=== PATIENT | male | born 1985 | race Caucasian/White ===

== ENCOUNTER 2018-10-17 11:40 | Emergency (ER) | payer BC ==
[~2018-10-17] VITALS: Ht 182.9 cm; Wt 95.0 kg
[2018-10-17 12:16] VITALS: Ht 182.9 cm; Wt 95.0 kg
[2018-10-17 12:48] LABS: BASOPHILS 0.3 % (0-2); EOSINOPHILS 1.9 % (0-7); HEMATOCRIT 41.3 % (42.0-54.0); HEMOGLOBIN 14.4 g/dL (13.5-17.5); IMMATURE GRANULOCYTES 0.1 % (0-5); LYMPHOCYTES 22.5 % (15-50); MCH 30.4 pg (26.0-34.0); MCHC 34.9 g/dL (31.0-37.0); MCV 87.1 fL (80.0-100.0); MEAN PLATELET VOLUME 11.1 fL (7.4-10.4); MONOCYTES 6.1 % (2-11); NEUTROPHILS 69.1 % (40-80); PLATELET COUNT 193 10x3/uL (130-400); RBC 4.74 10x6/uL (4.20-6.10); RDW 12.2 % (11.5-14.5); WBC 6.9 10x3/uL (4.8-10.8)
[2018-10-17 12:58] LABS: ALBUMIN 3.9 g/dL (3.4-5.0); ALKALINE PHOSPHATASE 157 U/L (46-116); ALT (SGPT) 49 U/L (10-68); BILIRUBIN - TOTAL 0.25 mg/dL (0.2-1.3); CALC OSMOLALITY 276 mosm/kg (275-300); CALCIUM 9.5 mg/dL (8.5-10.1); CARBON DIOXIDE 29.7 mmol/L (21.0-32.0); CHLORIDE - SERUM 103 mmol/L (98-107); CREATININE - SERUM 0.8 mg/dL (0.6-1.3); GLUCOSE 86 mg/dL (74-106); POTASSIUM - SERUM 4.7 mmol/L (3.5-5.1); PROTEIN - SERUM 7.3 g/dL (6.4-8.2); SODIUM 139 mmol/L (136-145); UREA NITROGEN 12 mg/dL (7-18); eGFR NON AFRICAN AMERICAN > 90 mL/min (90-120)
[2018-10-17 13:17] LABS: INR 1.01 (0.85-1.17); PROTIME 12.8 SECONDS (11.6-15.0)
[2018-10-17] MEDS ORDERED: VALIUM 2 MG TAB2 MG PO (14:01)
[2018-10-17] MEDS ORDERED: EC-NAPROSYN500 MG PO (14:01)
[2018-10-17] MEDS ORDERED: ULTRAM50 MG PO (14:01)
[2018-10-17 14:44] VITALS: BP 138/84
== END 2018-10-17 14:44 | disposition home or self-care (01) ==
LOC: D.ER 11:40
PROVIDERS: Family Medicine
DX: S16.1XXA Strain of muscle, fascia and tendon at neck level, initial encounter (principal); W11.XXXA Fall on and from ladder, initial encounter; Y93.89 Activity, other specified; Y92.019 Unspecified place in single-family (private) house as the place of occurrence of the external cause; S06.0X9A Concussion with loss of consciousness of unspecified duration, initial encounter; S20.229A Contusion of unspecified back wall of thorax, initial encounter; R51 Headache